=== PATIENT | male | born 1990 | race Caucasian/White ===

== ENCOUNTER 2016-10-01 14:54 | Inpatient (IN) | payer MEDICAID ==
[~2016-10-01] VITALS: Ht 167.6 cm; Wt 61.5 kg
[2016-10-01 15:06] VITALS: BP 135/86
[2016-10-01] MEDS ORDERED: MULTIVITAMIN-12 10 ML, THIAMINE 100 MG, MAGNESIUM SULFATE 50% 2,000 MG, FOLIC ACID 5 MG... IV ONE ×5 (15:10)
--- NOTE | 2016-10-01 15:10 | NUR ---
PATIENT BIB [facility]. PD FOUND PATIENT ON THE STREET WONDERING AROUND ALTERED/ETOH; DENIES N/V/D; SKIN IS PINK/WARM/DRY; PT CONFUSED; LUNGS CLEAR BL; HR EVEN AND REGULAR; PT DENIES ANY FEVER, CP, SOB, OR COUGH AT THIS TIME; PATIENT STATES PAIN OF 0/10 AT THIS TIME; VSS; PATIENT POSITIONED FOR COMFORT; HOB ELEVATED; BEDRAILS UP X2; BED DOWN. ER MD MADE AWARE OF PT STATUS.
[2016-10-01 15:37] LABS: BASOPHILS # (AUTO) 0.6 K/uL (0.00-0.22); EOSINOPHILS # (AUTO) 0.1 K/uL (0-0.4); HEMATOCRIT 44.7 % (36-52); MEAN CORPUSCULAR HEMOGLOBIN 31 pg (27-31); MEAN CORPUSCULAR HGB CONC 33 g/dL (33-37); MEAN CORPUSCULAR VOLUME 94 fL (80-94); MONOCYTES # (AUTO) 0.5 K/uL (0.8-1.0); MONOCYTES % (AUTO) 5.1 % (1.7-9.3); NEUTROPHILS # (AUTO) 6.7 K/uL (1.8-7.7); PLATELET COUNT (AUTO) 492 K/uL (140-450); RED BLOOD CELL COUNT(AUTO) 4.76 MIL/uL (4.20-6.10); RED CELL DISTRIBUTION WIDTH 12.1 % (11.6-13.7); WHITE BLOOD COUNT (AUTO) 9.9 K/uL (4.8-10.8)
[2016-10-01] MEDS ORDERED: DEXTROSE 50% 50 ML SYR IVP ONE ×2 (16:00→17:25)
[2016-10-01 16:09] LABS: ALANINE AMINOTRANSFERASE 50 U/L (12-78); ALBUMIN 4.3 g/dL (3.4-5.0); ALCOHOL, BLOOD < 3 mg/dL (<3); ALKALINE PHOSPHATASE 77 U/L (46-116); ANION GAP 16.9 (8-16); ASPARTATE AMINOTRANSFERASE 55 U/L (15-37); CALCIUM 9.2 mg/dL (8.5-10.1); CARBON DIOXIDE 27.3 mmol/L (21-32); CHLORIDE 100 mmol/L (98-107); CREATININE 0.9 mg/dL (0.6-1.3); GFR ARICAN-AMERICAN 132 mL/min (>90); GFR NON ARICAN-AMERICAN 109 mL/min (>90); GLUCOSE 97 mg/dL (74-106); POTASSIUM 4.2 mmol/L (3.5-5.1); SODIUM SERUM 140 mmol/L (136-145); TOTAL BILIRUBIN 0.5 mg/dL (0.0-1.0); TOTAL PROTEIN, SERUM 8.2 g/dL (6.4-8.2); UREA NITROGEN, BLOOD 17 mg/dL (7-18)
[2016-10-01 16:14] LABS: ACETAMINOPHEN < 0.5 ug/ml (10-30); SALICYLATE < 2.8 mg/dL (2.8-20.0)
[2016-10-01] MEDS ORDERED: ACETAMINOPHEN 325 MG TAB PO PRN (17:20)
[2016-10-01] MEDS ORDERED: LORazepam 2 MG/ML VIAL IVP PRN (17:20)
[2016-10-01] MEDS ORDERED: MORPHINE SULFATE 2 MG/ML SYR IVP PRN (17:20)
[2016-10-01] MEDS ORDERED: LORazepam 1 MG TAB PO PRN (17:20)
[2016-10-01] MEDS ORDERED: HYDROcodone/APAP 5/325 MG 1 TAB TAB PO PRN (17:20)
[2016-10-01] MEDS ORDERED: ZOLPIDEM 5 MG TAB PO PRN (17:20)
[2016-10-01] MEDS ORDERED: ONDANSETRON 4 MG/2 ML VIAL IVP PRN (17:20)
--- NOTE | 2016-10-01 17:20 | NUR ---
STRAIGHT CATH ATTEMPTED BY STUDENT NURSE WITH INSTRUCTOR, NO RETURN, DR HARDWICK NOTIFIED, ORDERED KEILY OF NS
[2016-10-01] MEDS ORDERED: DEXTROSE 10% 1,000 ML IV SCH (17:25)
[2016-10-01] MEDS ORDERED: DEXTROSE 50% 50 ML SYR IVP PRN (17:25)
[2016-10-01] MEDS ORDERED: NACL 0.9% 1,000 ML IV ONE (17:25)
[2016-10-01] MEDS ORDERED: INSULIN LISPRO SLIDING SCALE 100 UNITS/ML VIAL SUBQ PRN (17:25)
[2016-10-01 17:54] LABS: INR 1.1 (0.8-1.2); PARTIAL THROMBOPLASTIN TIME 25.9 secs (22-35.6); PROTHROMBIN TIME 10.2 secs (10.8-13.4)
--- NOTE | 2016-10-01 18:00 | NUR ---
Patient will be admitted to care of DR GREENBERG. Admited to [facility]. Will go to room 105B. Belongings list completed. Report to JAMSHID ZHANG.
[2016-10-01 18:06] LABS: CHOL/HDL RATIO 6.2 (1-4.5)
[2016-10-01] MEDS ORDERED: PROPOFOL 200 MG/20 ML VIAL IV ONE (18:10)
[2016-10-01 18:14] LABS: FREE T4 (FREE THYROXINE) 1.49 ng/dL (0.76-1.46); PHOSPHORUS 5.4 mg/dL (2.5-4.9); THYROID STIMULATING HORMONE 1.13 uIU/mL (0.34-3.76)
--- NOTE | 2016-10-01 18:42 | NUR ---
3.6 ML/36MG FIRST GIVEN BY DR HARDWICK IV RIGHT FOREARM, VS SEE FLOWSHEET
--- NOTE | 2016-10-01 18:49 | NUR ---
2ND DEPRIVAN 3.6 ML 36 MG GIVEN IV RIGHT FOREARM 20G BY DR HARDWICK VS SEE FLOW SHEET
--- NOTE | 2016-10-01 19:30 | NUR ---
REPORT GIVEN TO JAMSHID FERNANDEZ
--- NOTE | 2016-10-01 19:30 | NUR ---
WASTED 128 MG DEPRIVAN WITNESS BY JAMSHID ROMO
--- NOTE | 2016-10-01 20:06 | NUR ---
PATIENT WAS AGITATED , ATIVAN 2 MG IVP WAS GIVEN PER ERMDS ORDER.
[2016-10-01] MEDS ORDERED: LORazepam 2 MG/ML VIAL ONE (20:07)
--- NOTE | 2016-10-01 20:45 | NUR ---
Patient will be admitted to care of DR. GREENBERG. Admited to ICU. Will go to BED 5. Belongings list completed. Report to MARYAN BREEN.
[2016-10-01 20:46] VITALS: BP 102/60
--- NOTE | 2016-10-01 20:46 | NUR ---
RECEIVED PATIENT FROM ER VIA [facility] WITH REBECCA RN, LINNEA LEA RN, AND EMT. PATIENT IS SLEEPING, LETHARGIC, AND DOES NOT FOLLOW SIMPLE COMMANDS. NO SIGNS OF RESPIRATORY DISTRESS OR SOB. BREATH SOUNDS ARE CLEAR UPON AUSCULTATION. BOWEL SOUNDS ARE PRESENT. VITAL SIGNS ARE TEMPERATURE 97.2, HR 72, RR 15, BP 102/60, 0/10, 96% ON ROOM AIR. PATIENT DX IS ALOC AND DOES NOT FOLLOW COMMANDS. MRSA SWAB COLLECTED. PATIENT IS TELEMETRY STATUS. HOB AT 30 DEGREES WITH BED IN LOW POSITION. WILL CONTINUE TO MONITOR PATIENT.
[2016-10-01] MEDS: NACL 0.9% 1,000 ML IV SCH (21:59)
[2016-10-01] MEDS: BLOOD GLUCOSE MONITORING 1 DEV DEV FS SCH (22:01)
--- NOTE | 2016-10-01 22:08 | NUR ---
PATIENT RESTING COMFORTABLY IN BED. NO SIGNS OF DISTRESS OR SOB NOTED. CONTINUE TO MONITOR PATIENT.
[2016-10-02] VITALS: BP_SYST 101; BP_SYST 89; BP_DIAS 54; BP_DIAS 56
--- NOTE | 2016-10-02 00:40 | NUR ---
PATIENT VOIDED LARGE AMOUNT OF YELLOW COLOR URINE ON PERIPAD. PERINEAL CARE PROVIDED. PATIENT REPOSITIONED FOR COMFORT. WILL CONTINUE TO MONITOR PATIENT.
--- NOTE | 2016-10-02 02:05 | NUR ---
PATIENT RESTING COMFORTABLY. BREATHING IS EVEN AND UNLABORED. VITALS STABLE. CONTINUE TO MONITOR.
[2016-10-02] MEDS: NACL 0.9% 1,000 ML IV SCH ×3 (02:25→20:37)
[2016-10-02 04:00] VITALS: BP 91/35
--- NOTE | 2016-10-02 04:00 | NUR ---
PATIENT RESTING IN BED. NO SIGNS OF SOB OR ACUTE DISTRESS NOTED. WILL CONTINUE TO MONITOR PATIENT.
--- NOTE | 2016-10-02 06:02 | NUR ---
PATIENT RESTING COMFORTABLY IN BED. NO SIGNS OF DISTRESS NOTED. VITALS ARE STABLE. WILL CONTINUE TO MONITOR.
--- NOTE | 2016-10-02 06:08 | NUR ---
DR. DEE ON UNIT. PROVIDED PATIENT'S STATUS TO DR. DEE.
--- NOTE | 2016-10-02 06:11 | NUR ---
DR. DEE AT BEDSIDE.
[2016-10-02] MEDS: BLOOD GLUCOSE MONITORING 1 DEV DEV FS SCH ×4 (06:29→20:37)
--- NOTE | 2016-10-02 07:10 | NUR ---
PATIENT IN STABLE CONDITION. ENDORSED CONTINUITY OF CARE TO JAQUELINE BREEN.
--- NOTE | 2016-10-02 07:38 | NUR ---
PATIENT HAS BEEN SCREENED AND CATEGORIZED MODERATE NUTRITION RISK. PATIENT WILL BE SEEN WITHIN 3-5 DAYS OF ADMISSION. 10/04/16-10/06/[address]
--- NOTE | 2016-10-02 07:57 | NUR ---
RECEIVED PT FROM MARYAN BREEN. PT AWAKE, ALERT. POLISH SPEAKING ONLY. DOES NOT FOLLOW COMMANDS. BEDSIDE MONITOR SHOWS SR. NO S/S OF RESPIRATORY DISTRESS NOTED. LUNG SOUND CLEAR. ABDOMEN SOFT, NON TENDER WITH ACTIVE BOWEL SOUND. IV TO RIGHT FA #20 RUNNING 0.9 NS @ 110 ML/HR,INTACT AND PATENT. LEFT AC IV # 20 SALINE LOCKED, PT ABLE TO MOVE ALL HIS EXTREMITIES. TELEMETRY STATUS. HOB ELEVATED 30 DEGREES WITH LOW BED POSITION, CALL LIGHT IN REACH, WILL CONTINUE TO MONITOR.
[2016-10-02 08:00] VITALS: BP 142/96
[2016-10-02] MEDS: DOCUSATE SODIUM 100 MG GELCAP PO SCH (08:15)
[2016-10-02 08:16] LABS: HEMOGLOBIN A1C 5.6 % (4.8-5.6); T4 (THYROXINE) 10.6 ug/dL (4.5-12.0)
--- NOTE | 2016-10-02 11:50 | NUR ---
IN TO SEE PT, NOTIFIED HIM PT UNABLE TO FOLLOW COMMANDS.
[2016-10-02 12:00] VITALS: BP 112/76
--- NOTE | 2016-10-02 12:30 | NUR ---
NOTIFIED DR. DEE PT BS 62.NO NEW ORDER RECEIVED.
--- NOTE | 2016-10-02 13:45 | NUR ---
GIVE DR. JACKSON VOICE MESSAGE REGARDING THE CONSULTATION , FACE SHEET FAXED. WILL FOLLOW UP.
[2016-10-02 13:51] LABS: APPEARANCE,URINE CLEAR (CLEAR); BILIRUBIN,URINE NEGATIVE (NEGATIVE); BLOOD, URINE NEGATIVE (NEGATIVE); COLOR,URINE YELLOW (YELLOW); LEUKOCYTE ESTERASE ,URINE NEGATIVE (NEGATIVE); NITRITE, URINE NEGATIVE (NEGATIVE); PH,URINE 5.5 (5.0-9.0); PROTEIN,URINE NEGATIVE (NEGATIVE); UGLUCOSE NEGATIVE (NEGATIVE); UROBILINOGEN,URINE 0.2 EU/dL (0.2 - 1)
[2016-10-02 13:58] LABS: AMPHETAMINE, URINE POS. ng/ml (NEG <=1000); BARBITURATE, URINE NEG. ng/ml (NEG <=200); BENZODIAZEPINE, URINE NEG. ng/mL (NEG <=200); CANNABINOID, URINE NEG. ng/mL (NEG <=50); COCAINE, URINE NEG. ng/mL (NEG <=300); OPIATE, URINE NEG. ng/mL (NEG <=2000); PHENCYCLIDINE SCREEN,URINE NEG. ng/mL (NEG <=25)
[2016-10-02 14:03] LABS: BACTERIA,URINE None Seen /HPF (None Seen); RBC,URINE 0-3 /HPF (0-5); SQUAMOUS EPITHELIAL CELL,UR None Seen /LPF (0-3 (FEW)); WBC,URINE 0-3 /HPF (0-5)
--- NOTE | 2016-10-02 14:20 | NUR ---
PT TALKING TO HIMSELF.
[2016-10-02 16:00] VITALS: BP 112/41
--- NOTE | 2016-10-02 17:00 | NUR ---
PT RESTING IN BED. NO S/S OF RESPIRATORY DISTRESS NOTED.
--- NOTE | 2016-10-02 17:45 | NUR ---
DINNER TRAY SERVED. PT ATE 100% FOOD.
--- NOTE | 2016-10-02 19:00 | NUR ---
PT RESTING IN BED, NO SOB, CALL LIGHT IN REACH.
--- NOTE | 2016-10-02 19:20 | NUR ---
REPORT GIVEN TO KEYANA BREEN.
--- NOTE | 2016-10-02 19:30 | NUR ---
RECEIVED PT FROM JAMSHID HIGGINS. AT BEDSIDE. PT IS AAOX3, MONTSERRATIAN SPEAKING, SELF TALKING SOMETIMES, ABLE TO FOLLOW COMMANDS AND MAKE NEEDS KNOWN. DENIES PAIN, NO S/S OF SOB/DISTRESS NOTED, BREATHING EVEN AND UNLABORED, CLEAR LUNG SOUNDS, ON RA. 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 ABDOMEN SOFT WITH ACTIVE BOWEL SOUNDS. IV SITE TO RIGHT FA #20 RUNNING 0.9 NS @ 110 ML/HR,INTACT AND PATENT, AND TO LEFT AC # 20 SALINE LOCKED, AFEBRILE, SKIN IS INTACT, WARM AND DRY TO TOUCH, CONTINENT WITH B&B'S, ABLE TO MOVE ALL HIS EXTREMITIES. VSS, SAFETY MEASURE MAINTAINED, CALL LIGHT IN REACH, WILL CONTINUE TO MONITOR.
[2016-10-02 20:00] VITALS: BP 112/55
--- NOTE | 2016-10-02 21:00 | NUR ---
ACCU CHECK WITH 117MG/DL, NO INSULIN NEEDED THIS TIME, SCHEDULED MEDICATION GIVEN, PT TOLERATED WELL.
[2016-10-02] MEDS: QUEtiapine FUMARATE 25 MG TAB PO SCH (21:36)
[2016-10-03] VITALS: BP 91/48
--- NOTE | 2016-10-03 | NUR ---
PT IS ASLEEP IN BED, NO CHANGE OF CONDITION AT THIS TIME. VSS.
[2016-10-03 04:00] VITALS: BP 96/58
--- NOTE | 2016-10-03 04:00 | NUR ---
PT IS ASLEEP IN BED, NO CHANGE OF CONDITION AT THIS TIME, VSS.
[2016-10-03 05:55] LABS: HEMATOCRIT 38.4 % (36-52); HEMOGLOBIN 12.8 g/dL (12.0-18.0); MEAN CORPUSCULAR HEMOGLOBIN 32 pg (27-31); MEAN CORPUSCULAR HGB CONC 33 g/dL (33-37); MEAN CORPUSCULAR VOLUME 95 fL (80-94); PLATELET COUNT (AUTO) 348 K/uL (140-450); RED BLOOD CELL COUNT(AUTO) 4.04 MIL/uL (4.20-6.10); RED CELL DISTRIBUTION WIDTH 12.4 % (11.6-13.7); WHITE BLOOD COUNT (AUTO) 5.3 K/uL (4.8-10.8)
[2016-10-03] MEDS: NACL 0.9% 1,000 ML IV SCH (06:08)
[2016-10-03 06:14] LABS: EOSINOPHILS % (MANUAL) 7 % (0-4); LYMPHOCYTES % (MANUAL) 47 % (20-46); MONOCYTES % (MANUAL) 7 % (5-12); NEUTROPHILS % (MANUAL) 42 (43-65); PLATELET ESTIMATE ADEQUATE
--- NOTE | 2016-10-03 06:30 | NUR ---
ACCU CHECK WITH 73 MG/DL, NO INSULIN NEEDED THIS TIME, SCHEDULED MEDICATION GIVEN, PT TOLERATED WELL.
[2016-10-03] MEDS: BLOOD GLUCOSE MONITORING 1 DEV DEV FS SCH ×2 (06:35→11:30)
--- NOTE | 2016-10-03 07:10 | NUR ---
PT IS IN STABLE CONDITION, REPORT GIVEN TO JAMSHID COOK FOR CONTINUE OF CARE.
--- NOTE | 2016-10-03 07:20 | NUR ---
RECEIVED REPORT FROM JAMSHID RIDLEY. PT IS AWAKE AND ALERT. PT IS ON ROOM AIR. IV TO LEFT AC #20 AND RIGHT FOREARM #20 PATENT AND INTACT. SKIN IS INTACT. SAFETY PRECAUTIONS IN PLACE WITH BED IN LOWEST POSITION AND SIDE RAILS UP. CALL LIGHT WITHIN REACH. WILL CONTINUE TO MONITOR.
[2016-10-03 08:00] VITALS: BP 116/79
[2016-10-03] MEDS: DOCUSATE SODIUM 100 MG GELCAP PO SCH (08:19)
[2016-10-03] MEDS: QUEtiapine FUMARATE 25 MG TAB PO SCH (08:20)
--- NOTE | 2016-10-03 08:23 | NUR ---
PT TOLERATED MEDS WELL.
--- NOTE | 2016-10-03 08:30 | NUR ---
DR. FLANAGAN'S GROUP IN TO SEE PT. WILL FOLLOW UP ON ORDERS
--- NOTE | 2016-10-03 10:30 | NUR ---
CHECKED ON PT. RESTING AT THIS TIME, AROUSABLE. CALL LIGHT WITHIN REACH.
--- NOTE | 2016-10-03 11:58 | NUR ---
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 #[id number]. INSURANCE REP PRESENT AT BEDSIDE. AWAITING INFO AT THIS TIME ON ADDRESS AND AVAILABLE FRIENDS/RELATIVES FOR PT PICKUP AND FOR F/U CONTACT INFO.
[2016-10-03 12:00] VITALS: BP 102/63
--- NOTE | 2016-10-03 13:56 | NUR ---
RECEIVED TAXI VOUCHER FOR PT DISCHARGE.
--- NOTE | 2016-10-03 14:36 | NUR ---
PT HAS BEEN DISCHARGED. ALL PAPERWORK SIGNED, ALL BELONGINGS IN PT POSSESSION. IV'S DC'ED WITH CANNULAS INTACT. WRIST BANDS REMOVED. PT HAS BUS PASS IN POSSESSION. SECURITY PRESENT TO ESCORT TO BUS STATION. PT AMBULATED OUT OF UNIT IN STABLE CONDITION WITH STEADY GAIT.
== END 2016-10-03 14:38 | disposition home or self-care (01) | DRG 52 ==
LOC: MED 14:54 → MIC 17:24 → MTU 17:24 → EDBD 17:24
PROVIDERS: ADMIT Family Medicine; ATTEND Family Medicine
DX: G92 Toxic encephalopathy (principal); F15.20 Other stimulant dependence, uncomplicated; E16.0 Drug-induced hypoglycemia without coma; E83.39 Other disorders of phosphorus metabolism; F19.10 Other psychoactive substance abuse, uncomplicated; D47.3 Essential (hemorrhagic) thrombocythemia; E78.5 Hyperlipidemia, unspecified; Y92.89 Other specified places as the place of occurrence of the external cause
CPT/HCPCS: 36415; 70450; 80053; 80305; 81001; 82948; 83036; 83735; 83880; 84100; 84436; 84439; 84443; 84479; 85025; 85610; 85651; 85730; 86140; 87081; 93005; 96365; 96366; 96375; 96376; 99291; 99292; A9153; C1758; G0480; G0482; J1815; J2060; J2704; J3411; J3475; J3490; J7030